=== PATIENT | female | born 1980 | race Caucasian/White ===

== ENCOUNTER 2017-02-18 15:40 | Outpatient (RCR) | payer BC ==
[~2017-02-18 15:40] MED LIST: ADV1DS IH; ALBU8.5H2 IH; FERR-84 PO; FERRIC CARBOXYMALTOSE (CANCER) 750 MG in NS (IVPB) CANCER CENTER 250 ML IV SCH; FEXO1TAB42 PO; FLUT9.9S NS; LEVO50TA6 PO; LOSA1TAB3 PO; MULT-974 PO; PNT40TEC PO
== END 2017-05-08 | disposition home or self-care (01) ==
LOC: ONC 15:40
PROVIDERS: ATTEND Internal Medicine Hematology & Oncology
DX: D50.9 Iron deficiency anemia, unspecified (principal); K21.9 Gastro-esophageal reflux disease without esophagitis; N18.3 Chronic kidney disease, stage 3 (moderate); Z79.899 Other long term (current) drug therapy
CPT/HCPCS: 96365; 99213